=== PATIENT | male | born 1945 | race Caucasian/White ===

== ENCOUNTER 2018-11-08 15:58 | Emergency (ER) | payer MEDICARE, OTHER, MEDICAID ==
[~2018-11-08] VITALS: Ht 172.7 cm; Wt 108.9 kg
--- OUTSIDE RECORDS SUMMARY | ~2018-11-08 | XMS | Encounter Summary ---
Demographics + + + | Address | [address] | | | [place] [address] | + + + | Home Phone | | + + + | Preferred Language | Unknown | + + + | Marital Status | Single | + + + | Orthodoxy Affiliation | Unknown | + + + | Race | Unknown | + + + | Ethnic Group | Unknown | + + + Author + + + | Author | [facility] | | | and [place] | + + + | Organization | [facility] | | | and [place] | + + + | Address | Unknown | + + + | Phone | Unavailable | + + + Support + + + + + | Name | Relationship | Address | Phone | + + + + + | Meena Joy | ECON | [address] | | | | | [address], | | | | | [place] [address] | | + + + + + | Aliyah Berman | ECON | [address] | | | | | [place] | | | | | [address] | | + + + + + | Jesús Berman | ECON | Unknown | | + + + + + Care Team Providers + +------+ + | Care Human Resources Director Name | Role | Phone | + +------+ + | Solitario Albrecht MD | PCP | | + +------+ + Reason for Visit + + + | Reason | Comments | + + + | Medication Refill | | + + + Encounter Details +--------+--------+ + + + | Date | Type | Department | Care Team | Description | +--------+--------+ + + + | 10/31/ | Refill | [facility] | Solitario Albrecht, | Medication Refill | | 2019 | | [facility] | [address] | | | | | [address] | [place] | | | | | [place] | [address] | | | | | [address] | | | | | | [phone] | | | +--------+--------+ + + + Social History + +-------+ +--------+------+ | Tobacco Use | Types | Packs/Day | Years | Date | | | | | Used | | + +-------+ +--------+------+ | Never Smoker | | | | | + +-------+ +--------+------+ + +------+---+ + | Smokeless Tobacco: | Chew | | Quit: | | Former User | | | 11/24/19 | | | | | 14 | + +------+---+ + + + +---------+ + | Alcohol Use | Drinks/We | oz/Week | Comments | | | ek | | | + + +---------+ + | No | | | | + + +---------+ + + + + | Sex Assigned at | Date Recorded | | | | + + + | Not on file | | + + + as of this encounter Plan of Treatment +--------+---------+ + + + | Date | Type | Specialty | Care Team | Description | +--------+---------+ + + + | 03/31/ | Office | Sleep Medicine | Hemanth Mandujano PA | | | 2019 | Visit | | [address] | | | | | | [place] | | | | | | [phone] | | | | | | | | +--------+---------+ + + + as of this encounter Visit Diagnoses Not on filein this encounter"
--- OUTSIDE RECORDS SUMMARY | ~2018-11-08 | XMS | Clinical Summary ---
Demographics + + + | Address | [address] | | | [place] [address] | + + + | Home Phone | | + + + | Preferred Language | Unknown | + + + | Marital Status | Single | + + + | Buddhist Affiliation | 1077 | + + + | Race | Unknown | + + + | Ethnic Group | Unknown | + + + Author + + + | Author | [facility] | + + + | Organization | [facility] | + + + | Address | Unknown | + + + | Phone | Unavailable | + + + Support + + +---------+ + | Name | Relationship | Address | Phone | + + +---------+ + | Meena Joy | ECON | Unknown | | + + +---------+ + | Aliyah Kirk | ECON | Unknown | | + + +---------+ + Care Team Providers + +------+ + | Care Bending Machine Operator Name | Role | Phone | + +------+ + | Solitario Albrecht MD | PP | Unavailable | + +------+ + Allergies + + + + + + | Active Allergy | Reactions | Severity | Noted | Comments | | | | | Date | | + + + + + + | Penicillins | Itching | Medium | 11/21/19 | Had the reaction | | | | | 15 | over 25 years ago. | | | | | | Pt feels that it was | | | | | | a very slight | | | | | | reaction to | | | | | | medication. | + + + + + + Current Medications + + +--------+---------+------+------+-------+ | Prescription | Sig. | Disp. | Refills | Star | End | Statu | | | | | | t | Date | s | | | | | | Date | | | + + +--------+---------+------+------+-------+ | allopurinol | Take 300 mg by mouth | | | | | Activ | | (ZYLOPRIM) 300 MG | daily. | | | | | e | | tablet | | | | | | | + + +--------+---------+------+------+-------+ | ferrous sulfate, | Take 65 mg of iron | | | | | Activ | | 65 FE, 325 (65 FE) | by mouth daily with | | | | | e | | MG tablet | breakfast. | | | | | | + + +--------+---------+------+------+-------+ | carvedilol (COREG) | Take 1 tablet by | 60 | 0 | 06/ | | Activ | | 6.25 MG tablet | mouth 2 (two) times | tablet | | 5/20 | | e | | | daily. | | | 15 | | | + + +--------+---------+------+------+-------+ Active Problems + + + | Problem | Noted Date | + + + | Leukopenia | 11/25/2014 | + + + | Splenomegaly | 11/25/2014 | + + + | Alcoholic cirrhosis of liver | 11/25/2014 | + + + | Aortic regurgitation | 11/25/2014 | + + + | Cardiac ischemia | 11/25/2014 | + + + + + | Overview: demand | + + + + + | Alcohol abuse | 11/20/2014 | + + + | Hyperglycemia | 11/20/2014 | + + + | Leukocytosis, unspecified | 11/20/2014 | + + + | Esophageal varices (HCC) | 11/20/2014 | + + + Resolved Problems + + + + | Problem | Noted | Resolved | | | Date | Date | + + + + | Hemorrhage of gastrointestinal tract, unspecified | 01/21/20 | | | | 15 | 5 | + + + + | Acute blood loss anemia | 11/21/19 | | | | 15 | 5 | + + + + | Lactic acidosis | 11/21/19 | | | | 15 | 5 | + + + + | KATE (acute kidney injury) | 11/21/19 | | | | 15 | 5 | + + + + Family History + + +------+ + | Medical History | Relation | Name | Comments | + + +------+ + | Coronary art dis | Father | | | + + +------+ + | Heart disease | Father | | | + + +------+ + | High cholesterol | Father | | | + + +------+ + | Hypertension | Father | | | + + +------+ + + +------+--------+ + | Relation | Name | Status | Comments | + +------+--------+ + | Father | | | | + +------+--------+ + Social History + +-------+ +--------+------+ | Tobacco Use | Types | Packs/Day | Years | Date | | | | | Used | | + +-------+ +--------+------+ | Never Smoker | | | | | + +-------+ +--------+------+ + +---+---+---+ | Smokeless Tobacco: | | | | | Never Used | | | | + +---+---+---+ + + +---------+ + | Alcohol Use | Drinks/We | oz/Week | Comments | | | ek | | | + + +---------+ + | Yes | 1 Shots | 0.6 | | | | of | | | | | liquor | | | + + +---------+ + + + + | Sex Assigned at | Date Recorded | | | | + + + | Not on file | | + + + Last Filed Vital Signs + + + + | Vital Sign | Reading | Time Taken | + + + + | Blood Pressure | 110/51 | 01/22/2015 11:04 AM PDT | + + + + | Pulse | 75 | 01/22/2015 11:04 AM PDT | + + + + | Temperature | 36.7 C (98 F) | 01/22/2015 11:04 AM PDT | + + + + | Respiratory Rate | 16 | 01/22/2015 11:04 AM PDT | + + + + | Oxygen Saturation | 96% | 01/22/2015 11:04 AM PDT | + + + + | Inhaled Oxygen | - | - | | Concentration | | | + + + + | Weight | 108.7 kg (239 lb | 01/22/2015 3:35 AM PDT | | | 10.2 oz) | | + + + + | Height | 172.7 cm (5' 8") | 01/20/2015 9:48 PM PDT | + + + + | Body Mass Index | 36.44 | 01/22/2015 3:35 AM PDT | + + + + Plan of Treatment + + + + + | Health Maintenance | Due Date | Last Done | Comments | + + + + + | Vaccine: | | | | | Dtap/Tdap/Td (1 - | 5 | | | | Tdap) | | | | + + + + + | Vaccine: Zoster (1 | | | | | of 2) | 6 | | | + + + + + | Vaccine: | | | | | Pneumococcal 65+ | 1 | | | | Low/Medium Risk (1 | | | | | of 2 - PCV13) | | | | + + + + + | Vaccine: Influenza | | | | | (#1) | 8 | | | + + + + + Results Not on filefrom Last 3 Months Insurance + +--------+ +------+-------+ + | Payer | Benefi | Subscriber | Type | Phone | Address | | | t Plan | ID | | | | | | / | | | | | | | Group | | | | | + +--------+ +------+-------+ + | MEDICARE | MEDICA | [id number] | | | [address] | | | RE | | | | [place], [place] [address] | | | IP-OP | | | | | + +--------+ +------+-------+ + | [employer] [place] | MUTUAL | [id number] | | | | | | [place] | | | | | | | [place] | | | | | + +--------+ +------+-------+ + + +--------+ +--------+ + + | Guarantor Name | Accoun | Relation to | Date | Phone | Billing Address | | | t Type | Patient | of | | | | | | | | | | + +--------+ +--------+ + + | INDIA KIRK | Person | Self [birth year] Home: | [address] [place] | | | al/Fam | | 1946 | [phone] [address] [place] | | | [place] | | | [phone] | [address] | + +--------+ +--------+ + +
--- OUTSIDE RECORDS SUMMARY | ~2018-11-08 | XMS | Clinical Summary ---
Demographics + + + | Address | [address] | | | [place] [address] | + + + | Home Phone | | + + + | Preferred Language | Unknown | + + + | Marital Status | Single | + + + | Nondenominational Affiliation | 1077 | + + + | Race | Unknown | + + + | Ethnic Group | Unknown | + + + Author + + + | Author | [facility] | + + + | Organization | [facility] | + + + | Address [...] Team Providers + +------+ + | Care Emt Paramedic Name | Role | Phone | + [...] +------+-------+ + | MEDICARE | MEDICA | [id number] | | | [address] | | | RE | | | | [place] [address] | | | IP-OP | | | | | + +--------+ +------+-------+ + | [employer] [place] | MUTUAL | [id number] | | | | | | [place] | | | | | | | [place] | | | | | + +--------+ [...] | [place] | | | [phone] | [address] | + +--------+ +--------+ + +
--- OUTSIDE RECORDS SUMMARY | ~2018-11-08 | XMS | Clinical Summary ---
Demographics + + + | Address | [address] | | | [place] [address] | + + + | Home Phone | | + + + | Preferred Language | Unknown | + + + | Marital Status | Single | + + + | Amish Affiliation | Unknown | + + + | Race | Unknown | + + + | Ethnic Group | Unknown | + + + Author + + + | Author | [facility] | | | and [place] | + + + | Organization | [facility] | | | and [place] | [...] [place], | | | | | [place] [address] | | + + + + + | Aliyah Kirk | ECON | [address] | | | | | [place] | | | | | [address] | | + + + + + | Jesús Kirk | ECON | Unknown | | + + + + + Care Team Providers + +------+ + | Care Clod Puller Name | Role | Phone | + +------+ + | Solitario Albrecht MD | PP | | + +------+ + Allergies + + + +--------+ + | Active Allergy | Reactions | Severity | Noted | Comments | | | | | Date | | + + + +--------+ + | Penicillins | Rash | Low | | Pt reports mild | | | | | | rash as a child. | + + + +--------+ + Current Medications + + + +---------+------+------+-------+ | Prescription | Sig. | Disp. | Refills | Star | End | Statu | | | | | | t | Date | s | | | | | | Date | | | + + + +---------+------+------+-------+ | UNCODED | Wear at all times | 1 | 0 | 03/0 | | Activ | | MEDICATIONIndication | while sleeping. | Device | | 6/20 | | e | | s: PABLO (obstructive | | | | 13 | | | | sleep apnea) | | | | | | | + + + +---------+------+------+-------+ | ferrous sulfate | One po qd | 90 | 3 | 12/1 | | Activ | | 325 mg | | tablet | | 5/20 | | e | | tabletIndications: | | | | 14 | | | | Anemia | | | | | | | + + + +---------+------+------+-------+ | omeprazole | Take 1 capsule by | 180 | 0 | 06/1 | | Activ | | (PRILOSEC) 20 mg | mouth Daily. | capsule | | 6/20 | | e | | capsuleIndications: | | | | 15 | | | | Erosive gastropathy | | | | | | | + + + +---------+------+------+-------+ | rifAXIMin | Take 550 mg by mouth | | | | | Activ | | (XIFAXAN) 550 mg | 2 times daily. Take | | | | | e | | TABS | 1 tablet BID | | | | | | + + + +---------+------+------+-------+ | allopurinol | TAKE ONE TABLET BY | 90 | 3 | 12/2 | | Activ | | (ZYLOPRIM) 300 mg | MOUTH ONCE DAILY | tablet | | 9/20 | | e | | tablet | | | | 17 | | | + + + +---------+------+------+-------+ | lactulose 10 g/15 | TAKE THREE | 473 mL | 2 | 01/2 | | Activ | | mL solution | TEASPOONSFUL (15 | | | 3/20 | | e | | | ML)BY MOUTH TWICE | | | 18 | | | | | DAILY NEEDED | | | | | | + + + +---------+------+------+-------+ | carvedilol (COREG) | TAKE TWO TABLETS BY | 180 | 0 | 07/0 | | Activ | | 3.125 mg tablet | MOUTH ONCE DAILY | tablet | | 04/29 | | e | | | | | | 18 | | | + + + +---------+------+------+-------+ | propranolol | Take 1 tablet by | 60 | 0 | 04/10 | | Activ | | (INDERAL) 10 mg | mouth 2 times daily. | tablet | | 02/26 | | e | | tablet | Every 12 hours | | | 18 | | | + + + +---------+------+------+-------+ | spironolactone | TAKE 1 TABLET BY | 180 | 0 | 03/2 | | Activ | | (ALDACTONE) 25 mg | MOUTH TWICE DAILY | tablet | | 12/27 | | e | | tablet | | | | 19 | | | + + + +---------+------+------+-------+ | spironolactone | Take 1 tablet by | 60 | 5 | 09/1 | 03/2 | Disco | | (ALDACTONE) 25 mg | mouth 2 times daily. | tablet | | 11/27 | 11/27 | ntinu | | tablet | | | | 18 | 19 | ed | + + + +---------+------+------+-------+ Active Problems + + + | Problem | Noted Date | + + + | Recurrent major depressive disorder, in full remission (HCC) | 07/12/2018 | + + + | Hepatocellular carcinoma (HCC) | 11/17/2017 | + + + | Elevated glucose | 01/19/2017 | + + + | Liver dysplastic nodule | 07/17/2016 | + + + | S/P TIPS (transjugular intrahepatic portosystemic shunt) | 02/27/2016 | + + + | Elevated LFTs | 09/12/2015 | + + + | Renal insufficiency | 06/12/2015 | + + + | Alcoholism (HCC) | 06/12/2015 | + + + | Freedman's esophagus | 03/07/2015 | + + + | Cirrhosis of liver (HCC) | 01/20/2015 | + + + + + | Overview: Probably more due to ETOH given him drinking 6-8 | | ounces of hard liquor a day as recently as November 2014 (prior | | listed as having EARLY) | + + + + + | Upper GI bleeding | 09/07/2014 | + + + | Hx of esophageal varices | 09/07/2014 | + + + | Erosive gastropathy | 08/24/2014 | + + + | Plantar fasciitis | 04/04/2014 | + + + | Valvular heart disease | 11/11/2013 | + + + | Primary pulmonary HTN (HCC) | 06/16/2013 | + + + | Anemia | 10/26/2012 | + + + | Dermatitis | 09/23/2012 | + + + | Preventative health care | 08/31/2012 | + + + + + | Overview: CRSC:06/13/2011 | | | | Next Due: | + + + + + | ERALY (nonalcoholic steatohepatitis) | 07/13/2012 | + + + | GERD | 04/13/2012 | + + + | Chest pain | 03/02/2012 | + + + | Nicotine addiction | 01/01/2012 | + + + | Gout, unspecified | 01/01/2012 | + + + + + | Overview: ICD-10 Record update | + + + + + | HTN (hypertension) | 09/01/2011 | + + + | FATTY LIVER DISEASE | 05/22/2011 | + + + | Abnormal liver function tests | 05/22/2011 | + + + | BENIGN PROSTATIC HYPERTROPHY, HX OF | 12/24/2010 | + + + | Essential hypertension, benign | 11/27/2010 | + + + | Alcohol abuse | 11/27/2010 | + + + | Hyperlipidemia | | + + + | Smoker | | + + + | PABLO (obstructive sleep apnea) | | + + + | BPH (benign prostatic hyperplasia) | | + + + Encounters +--------+ + + + + | Date | Type | Specialty | Care Team | Description | +--------+ + + + + | 10/31/ | Refill | | Solitario Albrecht, | Medication Refill | | 2018 | | | MD | | +--------+ + + + + | 08/18/ | Telephone | | Solitario Albrecht, | TCM - Hosp FU | | 2018 | | | MD | | +--------+ + + + + from Last 3 Months Immunizations + + + + | Name | Dates Previously Given | Next Due | + + + + | INFLUENZA 65 Y OR >, | 03/31/2017, 05/31/2016, 05/10/2013 | | | TRIVALENT HIGH-DOSE | | | + + + + | INFLUENZA PF | 03/26/2018 | | | QUAD(PED/ADOL/ADULT) | | | | ,PSKT or VIAL | | | + + + + | INFLUENZA PF | 05/24/2012 | | | TRIVALENT(PED/ADOL/A | | | | DULT), PSKT | | | + + + + | INFLUENZA QUADR | 05/29/2015, 05/15/2014 | | | W/PRES | | | | (PED/ADOL/ADULT) | | | | MULTIDOSE | | | + + + + | PNEUMOCOCCAL | 06/12/2015 | | | CONJUGATE 13-VALENT | | | | (PCV13) | | | + + + + | PNEUMOCOCCAL | 07/17/2016 | | | POLYSACCHARIDE | | | | 23-VALENT (PPSV23) | | | + + + + Family History + + +------+ + | Medical History | Relation | Name | Comments | + + +------+ + | High blood pressure | Brother | | | + + +------+ + | High cholesterol | Brother | | | + + +------+ + | Aneurysm | Father | | of thoracic aneurysm, snoring | + + +------+ + | High blood pressure | Father | | | + + +------+ + | Ovarian cancer | Mother | | | + + +------+ + | Diabetes | Sister | | | + + +------+ + | High cholesterol | Sister | | | + + +------+ + + +------+ + + | Relation | Name | Status | Comments | + +------+ + + | Brother | | Alive | | + +------+ + + | Daughter | | Alive | | + +------+ + + | Father | | | thoracic aneurysm | | | | (Age | | | | | 67) | | + +------+ + + | Mother | | | ovarian cancer. | | | | (Age | | | | | 75) | | + +------+ + + | Sister | | Alive | | + +------+ + + Social History + +-------+ +--------+------+ [...] [birth year] | + +------+---+ + + + | Tobacco Cessation: Counseling Given: Yes | + + + + +---------+ + | Alcohol [...] + + + | Blood Pressure | 118/64 | 07/12/2018 1059 PST | + + + + | Pulse | 65 | 03/31/2018 1110 PDT | + + + + | Temperature | 36.8 C (98.3 F) | 07/12/2018 1059 PST | + + + + | Respiratory Rate | 16 | 07/12/20181058 PST | + + + + | Oxygen Saturation | 98% | 03/31/20181109 PDT | + + + + | Inhaled Oxygen | - | - | | Concentration | | | + + + + | Weight | 90.7 kg (199 lb 15.3 | 07/12/20181058 PST | | | oz) | | + + + + | Height | 170.2 cm (5' 7") | 07/12/20181058 PST | + + + + | Body Mass Index | 31.32 | 07/12/2018 1059 PST | + + + + Plan of Treatment +--------+---------+ + + + | Date | Type | Specialty | Care Team | Description | +--------+---------+ + + + | 03/31/ | Office | | Hemanth Mandujano PA | | | 2019 | Visit | | [address] | | | | | | [place] | | | | | | [id number] | | | | | | | | +--------+---------+ + + + + + + + + | Health Maintenance | Due Date | Last Done | Comments | + + + + + | Adult Annual | | | | | Wellness Visit | 5 | | | + + + + + | Vaccine: | | | Postponed from | | Dtap/Tdap/Td (1 - | 0 | | 1964 (Patient | | Tdap) | | | Declined) | + + + + + | Colorectal Cancer | | 01/06/2014, 01/06/2014, | | | Screening | 4 | 06/13/2011 | | | (Colonoscopy) | | | | + + + + + | Hepatitis C | Completed | 11/27/2010 | | | Screening | | | | + + + + + | Vaccine: | Completed | 07/17/2016, 06/12/2015 | | | Pneumococcal 65+ | | | | | High/Highest Risk | | | | + + + + + | Vaccine: Influenza | Completed | 03/26/2018, 03/31/2017, | | | | | 05/31/2016, Additional history | | | | | exists | | + + + + + Results Not on filefrom Last 3 Months Insurance + +--------+ +--------+ +---------+ | Payer | Benefi | Subscriber | Type | Phone | Address | | | t Plan | ID | | | | | | / | | | | | | | Group | | | | | + +--------+ +--------+ +---------+ | MEDICARE | MEDICA | [id number] | Medica | [phone] | | | | RE | | re | [phone] | | | | PART A | | | | | | | AND B | | | | | + +--------+ +--------+ +---------+ | [employer] [place] | UNITED | [id number] | Indemn | [phone] | | | | OF | | ity | 1000 | | | | [place] | | | | | | | MDCR | | | | | | | SUPPL | | | | | + +--------+ +--------+ +---------+ + +--------+ +--------+ + + | Guarantor Name | Accoun | Relation to | Date | Phone | Billing Address | | | t Type | Patient | of | | | | | | | | | | + +--------+ +--------+ + + | INDIA KIRK | Person | Self [birth year] | Home: | [address] | | | al/Fam | | 1946 | [phone] | [address] | | | [place] | | | [phone] | [place] [address] | + +--------+ +--------+ + +
--- OUTSIDE RECORDS SUMMARY | ~2018-11-08 | XMS | Encounter Summary ---
Demographics + + + | Address | [address] | | | [place] [address] | + + + | Home Phone | | + + + | Preferred Language | Unknown | + + + | Marital Status | Single | + + + | Jainism Affiliation | Unknown | + + + | Race | Unknown | + + + | Ethnic Group | Unknown | + + + Author + + + | Author | [facility] | | | and [place] | + + + | Organization | [facility] | | | and [place] | [...] [place], | | | | | [place] [address] | | + + + + + | Aliyah Berman | ECON | [address] | | | | | [place] | | | | | [address] | | + + + + + | Jesús Berman | ECON | Unknown | | + + + + + Care Team Providers + +------+ + | Care Head Knitting Machine Fixer Name | Role | Phone | + +------+ + | Solitario Albrecht MD | PCP | | + +------+ + Reason for Visit + + + | Reason | Comments | + + + | TCM - Hosp FU | | + + + Encounter Details +--------+ + + + + | Date | Type | Department | Care Team | Description | +--------+ + + + + | 08/18/ | Telephone | [facility] | Solitario Albrecht, | TCM - Hosp FU | | 2019 | | [facility] [place] | [address] | | | | | [address] | [place] | | | | | [place] | [address] | | | | | [address] | | | | | | [phone] | | | +--------+ + + + + Social History + +-------+ [...] [place] | | | | | | [address] | | | | | | | | +--------+---------+ + + + as of this encounter Visit Diagnoses Not on filein this encounter"
--- OUTSIDE RECORDS SUMMARY | ~2018-11-08 | XMS | Clinical Summary ---
Demographics + + + | Address | [address] | | | [place] [address] | + + + | Home Phone | | + + + | Preferred Language | Unknown | + + + | Marital Status | Single | + + + | Lutheran Affiliation | Unknown | + + + | Race | Unknown | + + + | Ethnic Group | Unknown | + + + Author + + + | Author | [facility] | | | and [place] | + + + | Organization | [facility] | | | and [place] [...] [place], | | | | | [place] [address] | | + + + + + | Aliyah Kirk | ECON | [address] | | | | | [place] | | | | | [address] | | + + + + + | Jesús Kirk | ECON | Unknown | | + + + + + Care Team Providers + +------+ + | Care Community Outreach Specialist Name | Role | Phone | + [...] | + + + + + | AERLY (nonalcoholic steatohepatitis) | 07/13/2012 | + + [...] 2019 | Visit | | [address] | | | | | | [place] | | | | | | [id number] | | | | | | | [...] +--------+ +---------+ | MEDICARE | MEDICA | [id number] | Medica | [phone] | | | | RE | | re | [phone] | | | | PART A | | | | | | | AND B | | | | | + +--------+ +--------+ +---------+ | [employer] [place] | [place] | [id number] | Indemn | [id number] | | | | OF | | ity | 1000 | | | | [place] | | | | | | | [...] Self | [birth year] | Home: | [address] | | | al/Fam | | 1946 | [phone] | [address] | | | [place] | | | [address] | [place] [address] | + +--------+ +--------+ + +
--- OUTSIDE RECORDS SUMMARY | ~2018-11-08 | XMS | Encounter Summary ---
Demographics + + + | Address | [address] | | | [place] [address] | + + + | Home Phone | | + + + | Preferred Language | Unknown | + + + | Marital Status | Single | + + + | Pentecostalism Affiliation | Unknown | + + + | Race | Unknown | + + + | Ethnic Group | Unknown | + + + Author + + + | Author | [facility] | | | and [place] | + + + | Organization | [facility] | | | and [place] [...] [place], | | | | | [place] [address] | | + + + + + | Aliyah Berman | ECON | [address] | | | | | [place] | | | | | [address] | | + + + + + | Jesús Berman | ECON | Unknown | | + + + + + Care Team Providers + +------+ + | Care Pyridine Operator Name | Role | Phone | [...] + | 08/18/ | Telephone | [facility] | Solitario Albrecht, | TCM - Hosp FU | | 2019 | | [facility] [place] | [address] | | | | | [address] | [place] | | | | | [place] | [address] | | | | | [address] | | | | | | [phone] | | | +--------+ + + + [...] [place] | | | | | | [address] | | | | | | | | +--------+---------+ + + + as of this encounter Visit Diagnoses Not on filein this encounter"
--- OUTSIDE RECORDS SUMMARY | ~2018-11-08 | XMS | Encounter Summary ---
Demographics + + + | Address | [address] | | | [place] [address] | + + + | Home Phone | | + + + | Preferred Language | Unknown | + + + | Marital Status | Single | + + + | Gnosticist Affiliation | Unknown | + + + | Race | Unknown | + + + | Ethnic Group | Unknown | + + + Author + + + | Author | [facility] | | | and [place] | + + + | Organization | [facility] | | | and [...] [place], | | | | | [place] [address] | | + + + + + | Aliyah Berman | ECON | [address] | | | | | [place] | | | | | [address] | | + + + + + | Jesús Berman | ECON | Unknown | | + + + + + Care Team Providers + +------+ + | Care Material Expediter Name | Role | Phone | + [...] Refill | | 2019 | | [facility] | [address] | | | | | [address] | [place] | | | | | [place] | [id number] | | | | | [address] | | | | | | [phone] | | | +--------+--------+ + + + [...] [place] | | | | | | [phone] | | | | | | | | +--------+---------+ + + + as of this encounter Visit Diagnoses Not on filein this encounter"
[~2018-11-08 15:58] MED LIST: ALLOPURINOL300 MG PO; AMLODIPINE BESYL5 MG PO; CARVEDILOL3.125 MG PO; FERROUS SULFAT325 MG PO; OMEPRAZOLE20 MG PO; TRAMADOL HCL50 MG PO
[2018-11-08] MEDS ORDERED: CONSTULOSE10 GM/15 M PO (16:18)
[2018-11-08] MEDS ORDERED: XIFAXAN550 MG PO (16:19)
[2018-11-08] MEDS ORDERED: PROPRANOLOL HCL10 MG PO (16:19)
[2018-11-08] MEDS ORDERED: ALDACTONE25 MG PO (16:19)
[2018-11-08] MEDS ORDERED: OPDIVO100 MG/10 IV (16:20)
--- NOTE | 2018-11-09 15:25 | EKG ---
[facility] [address] [facility] [place], [place] [address] Signed Normal sinus rhythm Normal ECG No previous ECGs available Confirmed by NATALIA IRAHETA DO ([id number]) on 11/09/2018 3:24:58 PM Electronically Signed By: NATALIA IRAHETA DO 11/09/18 1525 PATIENT NAME: INDIA KIRK Maame Electrocardiogram DATE OF : 45 PHYSICIAN: NATALIA IRAHETA DO REPORT #: [id number] REPORT IS CONFIDENTIAL AND NOT TO BE RELEASED WITHOUT AUTHORIZATION
== END 2018-11-08 21:13 | disposition short-term general hospital (02) ==
LOC: ED 15:58
DX: J90 Pleural effusion, not elsewhere classified (principal); E78.5 Hyperlipidemia, unspecified; I10 Essential (primary) hypertension; Z88.0 Allergy status to penicillin; Z79.899 Other long term (current) drug therapy
CPT/HCPCS: 71046; 71260; 80053; 83880; 85025; 93005; 93010; 99285-25; Q9967